=== PATIENT | male | born 1975 | race Caucasian/White ===

== ENCOUNTER 2019-03-18 06:29 | Emergency (ER) | payer BC ==
[2019-03-18] MEDS: ASPIRIN 325 MG TAB PO (07:17)
[2019-03-18 07:25] LABS: ADD MAN DIFF? NO
[2019-03-18 07:29] LABS: WHITE BLOOD COUNT 5.1 10^3/ul (4.8-10.8)
[2019-03-18 07:29] LABS: BASOPHILS % 0.8 % (0.0-2.0); EOSINOPHILS # 0.1 10^3/ul (0.0-0.5); EOSINOPHILS % 1.6 % (0.0-7.0); HEMATOCRIT 45.4 % (42.0-52.0); LYMPHOCYTES # 2.2 10^3/ul (0.8-2.9); LYMPHOCYTES % 42.8 % (15.0-51.0); MEAN CORPUSCULAR VOLUME 87.8 fl (82.0-101.0); MEAN PLATELET VOLUME 10.8 fl (7.4-10.4); MONOCYTE # 0.4 10^3/ul (0.3-0.9); MONOCYTES % 6.9 % (0.0-11.0); NEUTROPHIL # 2.4 10^3/ul (1.6-7.5); NEUTROPHILS % 47.7 % (39.0-77.0); PLATELET COUNT 185 10^3/UL (140-415); RED BLOOD COUNT 5.17 10^6/ul (4.70-6.10); RED CELL DISTRIBUTION WIDTH 12.3 % (11.5-14.5)
[2019-03-18 07:45] LABS: ANION GAP 9 (5-13); BLOOD UREA NITROGEN 11 mg/dl (7-20); CALCIUM 9.5 mg/dl (8.4-10.2); CARBON DIOXIDE 27 mmol/L (21-31); CHLORIDE 106 mmol/L (97-110); Estimated GFR > 60 mL/min (>60); GLUCOSE 126 mg/dl (70-220); POTASSIUM 3.9 mmol/L (3.5-5.1); SODIUM 142 mmol/L (135-144)
[2019-03-18 07:56] LABS: TROPONIN-I < 0.012 ng/ml (0.000-0.120)
[2019-03-18 11:07] LABS: TROPONIN-I < 0.012 ng/ml (0.000-0.120)
== END 2019-03-18 13:44 | disposition home or self-care (01) ==
LOC: E/R 06:29
DX: R07.89 Other chest pain (principal); Z79.82 Long term (current) use of aspirin
CPT/HCPCS: 36415; 71045; 80048; 84484; 85025; 93005; 99285-25